=== PATIENT | female | born 1970 | race Two or more races ===

== ENCOUNTER 2021-02-11 06:17 | Day surgery (SDC) | payer OTHER ==
[2021-02-11] MEDS ORDERED: CARAFATE1 GM/10 ML PO (08:49)
[2021-02-11] MEDS ORDERED: NEXIUM 24HR20 MG PO (08:49)
== END 2021-02-11 10:30 | disposition home or self-care (01) ==
LOC: AMB-ENDOS 06:17
PROVIDERS: ATTEND Surgery
DX: D13.1 Benign neoplasm of stomach (principal); K44.9 Diaphragmatic hernia without obstruction or gangrene; Z20.822 Contact with and (suspected) exposure to COVID-19

== ENCOUNTER 2023-02-16 05:55 | Day surgery (SDC) | payer OTHER ==
[~2023-02-16 05:55] MED LIST: CARAFATE1 GM/10 ML PO; NEXIUM 24HR20 MG PO
== END 2023-02-16 11:05 | disposition home or self-care (01) ==
LOC: AMB-ENDOS 05:55
PROVIDERS: ATTEND Surgery
DX: D12.4 Benign neoplasm of descending colon (principal); Z12.11 Encounter for screening for malignant neoplasm of colon; E66.09 Other obesity due to excess calories; Z91.013 Allergy to seafood